=== PATIENT | female | born 1955 | race Native Hawaiian/Other Pacific Islander ===

== ENCOUNTER 2018-09-26 08:44 | Outpatient (CLI) | payer BC ==
[~2018-09-26 08:44] MED LIST: CORICIDI1 OR; ESTR1.254 PO; FLOVENT HFA44 MCG IN; FURO20TA67 PO; JANUVIA100 MG PO; LEVAQUIN500 MG OR; LEXAPRO10 MG OR; LISI10TA11 PO; MOME50SP; NEXIUM40 M1 PO; PANT40TA PO; PROAIR HFA IN; SINGULAIR10 MG PO; TIOTCAP2 INH; TRICOR48 MG PO; ZOFRAN8 MG OR; [UNRECOGNIZED DRUG - CODE] PO
== END 2018-09-26 22:37 | disposition home or self-care (01) ==
LOC: US 08:44
DX: K22.70 Barrett's esophagus without dysplasia (principal); E11.9 Type 2 diabetes mellitus without complications; Z01.818 Encounter for other preprocedural examination